=== PATIENT | male | born 1930 | race Caucasian/White ===

== ENCOUNTER 2018-08-09 03:59 | Emergency (ER) | payer MEDICARE, OTHER ==
[~2018-08-09] VITALS: Ht 165.1 cm; Wt 76.0 kg
[~2018-08-09 03:59] MED LIST: ASPI-1265 PO; ATOR40TA PO; D-3; DONE5TAB3 PO; HYT1T PO; MELA3TAB11 PO; NIAC500T81 PO
[2018-08-09 05:05] LABS: BASOPHILS % (AUTO) 0.4 % (0-1); EOSINOPHILS # (AUTO) 0.1 X10'3 (0-0.9); EOSINOPHILS % (AUTO) 0.9 % (0-6); HEMATOCRIT 38.6 % (42.0-52.0); HEMOGLOBIN 12.9 g/dl (14.0-17.9); LYMPHOCYTES # (AUTO) 1.6 X10'3 (1.1-4.8); LYMPHOCYTES % (AUTO) 16.9 % (21-51); MEAN CORPUSCULAR HEMOGLOBIN 31.6 PG (27.0-31.0); MEAN CORPUSCULAR HGB CONC 33.5 g/dL (33.0-36.5); MEAN CORPUSCULAR VOLUME 94.4 FL (78-98); MEAN PLATELET VOLUME 9.3 FL (7.4-10.4); MONOCYTES # (AUTO) 1.6 X10'3 (0-0.9); MONOCYTES % (AUTO) 17.2 % (2-12); NEUTROPHILS # (AUTO) 6.1 X10'3 (1.8-7.7); NEUTROPHILS % (AUTO) 64.6 % (42-75); PLATELET COUNT 176 X10'3 (140-440); RED BLOOD COUNT 4.09 X10'6 (4.70-6.10); RED CELL DISTRIBUTION WIDTH 13.2 % (11.5-14.5); WHITE BLOOD COUNT 9.4 X10'3 (4.5-11.0)
[2018-08-09 05:06] LABS: MAGNESIUM 1.8 MG/DL (1.5-2.4); PHOSPHORUS 3.2 MG/DL (2.3-4.5)
[2018-08-09 05:33] LABS: ALANINE AMINOTRANSFERASE 16 U/L (12-78); ALBUMIN 3.2 G/DL (3.4-5.0); ALBUMIN/GLOBULIN RATIO 0.9 (1.1-1.5); ALKALINE PHOSPHATASE 82 IU/L (46-116); ANION GAP 10 (8-16); ASPARTATE AMINO TRANSFERASE 23 U/L (10-37); BILIRUBIN,TOTAL 0.9 MG/DL (0.1-1.0); BLOOD UREA NITROGEN 20 MG/DL (7-18); BUN/CREATININE RATIO 14.2 (5.4-32.0); CALCIUM 8.9 MG/DL (8.5-10.1); CHLORIDE 103 MMOL/L (99-107); CREATININE 1.41 MG/DL (0.60-1.10); GLUCOSE 107 MG/DL (70-104); SODIUM 137 MMOL/L (135-145); TOTAL CARBON DIOXIDE 24.1 MMOL/L (24-32); TOTAL PROTEIN 6.8 G/DL (6.4-8.2); eGFR 48 ML/MIN
--- NOTE | 2018-08-09 05:53 | NUR ---
GOT PT OUT OF WET CLOTHES AND PROVIDED HIM WITH BEDSIDE URINAL FOR URINE SAMPLE. WILL RE-DRESS PATIENT WHEN FINISHED.
--- NOTE | 2018-08-09 06:35 | NUR ---
patient on bed asleep,family at bedside.
[2018-08-09 07:13] LABS: CLARITY,URINE CLOUDY (Clear); COLOR,URINE YELLOW (Yellow); GLUCOSE, URINE NEGATIVE (Neg); KETONES,URINE NEGATIVE (Neg); LEUKOCYTE ESTERASE ,URINE MODERATE (Neg); NITRITES, URINE POSITIVE (Neg); OCCULT BLOOD,URINE MODERATE (Neg); PROTEIN,URINE TRACE mg/dl (Neg)
[2018-08-09 07:14] LABS: UA COLLECTION TYPE STRAIGHT CATH
[2018-08-09 07:18] LABS: WBC,URINE TNTC /HPF (0-4)
[2018-08-09 07:19] LABS: BACTERIA,URINE 4+ /HPF (Neg); MUCUS STRANDS NONE SEEN /LPF (Neg); SQUAMOUS EPITHELIAL CELL,UR NONE SEEN /LPF (FEW); WBC CLUMPS,URINE MANY /HPF (NEGATIVE)
[2018-08-09] MEDS ORDERED: CefTRIAXone/D5W-Rocephin 1gm 50 ML IV ONE (07:25)
--- NOTE | 2018-08-09 07:26 | NUR ---
dr. michele at bedside.
[2018-08-09] MEDS ORDERED: CEPH500C5 PO (07:27)
[2018-08-09 08:24] VITALS: BP 158/65
== END 2018-08-09 08:25 | disposition home or self-care (01) ==
LOC: ER 04:00
DX: N39.0 Urinary tract infection, site not specified (principal); F03.90 Unspecified dementia, unspecified severity, without behavioral disturbance, psychotic disturbance, mood disturbance, and anxiety; I25.10 Atherosclerotic heart disease of native coronary artery without angina pectoris; I25.2 Old myocardial infarction; Z95.1 Presence of aortocoronary bypass graft; Z98.890 Other specified postprocedural states; Z88.0 Allergy status to penicillin; Z88.5 Allergy status to narcotic agent; Z79.82 Long term (current) use of aspirin; Z79.899 Other long term (current) drug therapy; W06.XXXA Fall from bed, initial encounter; Y93.89 Activity, other specified; Y92.89 Other specified places as the place of occurrence of the external cause; Y99.8 Other external cause status
CPT/HCPCS: 36415; 70450; 71045; 80053; 81001; 82140; 83735; 84100; 85025; 87077; 87088; 87186; 96365; 99284; J0696; P9612

== ENCOUNTER 2019-02-06 12:53 | Emergency (ER) | payer MEDICARE ==
[~2019-02-06] VITALS: Ht 172.7 cm; Wt 83.0 kg
[2019-02-06 13:51] LABS: BASOPHILS % (AUTO) 0.3 % (0-1); EOSINOPHILS # (AUTO) 0.2 X10'3 (0-0.9); EOSINOPHILS % (AUTO) 1.6 % (0-6); HEMATOCRIT 46.3 % (42.0-52.0); HEMOGLOBIN 15.6 g/dl (14.0-17.9); LYMPHOCYTES # (AUTO) 1.4 X10'3 (1.1-4.8); LYMPHOCYTES % (AUTO) 12.3 % (21-51); MEAN CORPUSCULAR HEMOGLOBIN 31.7 PG (27.0-31.0); MEAN CORPUSCULAR HGB CONC 33.7 g/dL (33.0-36.5); MEAN CORPUSCULAR VOLUME 93.9 FL (78-98); MEAN PLATELET VOLUME 9.2 FL (7.4-10.4); MONOCYTES # (AUTO) 1.5 X10'3 (0-0.9); MONOCYTES % (AUTO) 13.6 % (2-12); NEUTROPHILS % (AUTO) 72.2 % (42-75); PLATELET COUNT 207 X10'3 (140-440); RED BLOOD COUNT 4.93 X10'6 (4.70-6.10); RED CELL DISTRIBUTION WIDTH 13.7 % (11.5-14.5)
[2019-02-06 13:55] LABS: ALANINE AMINOTRANSFERASE 28 U/L (12-78); ALBUMIN 3.7 G/DL (3.4-5.0); ALKALINE PHOSPHATASE 83 IU/L (46-116); ANION GAP 6 (8-16); ASPARTATE AMINO TRANSFERASE 28 U/L (10-37); BLOOD UREA NITROGEN 17 MG/DL (7-18); CHLORIDE 102 MMOL/L (99-107); GLUCOSE 106 MG/DL (70-104); POTASSIUM 4.3 MMOL/L (3.5-5.1); SODIUM 137 MMOL/L (135-145); TOTAL CARBON DIOXIDE 28.8 MMOL/L (24-32); TOTAL PROTEIN 7.5 G/DL (6.4-8.2); eGFR 38 ML/MIN
[2019-02-06 15:15] LABS: CLARITY,URINE SLIGHTLY CLOUDY (Clear); COLOR,URINE YELLOW (Yellow); GLUCOSE, URINE NEGATIVE (Neg); KETONES,URINE NEGATIVE (Neg); LEUKOCYTE ESTERASE ,URINE NEGATIVE (Neg); NITRITES, URINE NEGATIVE (Neg); OCCULT BLOOD,URINE MODERATE (Neg); PROTEIN,URINE NEGATIVE (Neg); UROBILINOGEN,URINE 0.2 E.U/dL (0.2-1.0)
[2019-02-06 15:17] LABS: UA COLLECTION TYPE CLN CATCH MIDSTREAM
[2019-02-06 15:20] LABS: BACTERIA,URINE 1+ /HPF (Neg); HYALINE CASTS 0-3 /LPF (NEGATIVE); MUCUS STRANDS FEW /LPF (Neg); RBC,URINE 0-2 /HPF (0-2); SQUAMOUS EPITHELIAL CELL,UR FEW /LPF (FEW); WBC,URINE 0-4 /HPF (0-4)
[2019-02-06 15:59] VITALS: BP 135/80
== END 2019-02-06 16:03 | disposition home or self-care (01) ==
LOC: ER 12:53
DX: B34.9 Viral infection, unspecified (principal); I25.10 Atherosclerotic heart disease of native coronary artery without angina pectoris; I25.2 Old myocardial infarction; Z95.1 Presence of aortocoronary bypass graft; Z98.890 Other specified postprocedural states; Z88.0 Allergy status to penicillin; Z88.5 Allergy status to narcotic agent; Z79.82 Long term (current) use of aspirin; Z79.899 Other long term (current) drug therapy
CPT/HCPCS: 36415; 71045; 80053; 81001; 84484; 85025; 87502; 87503; 93005; 99284

== ENCOUNTER 2019-08-07 15:03 | Inpatient (IN) | payer MEDICARE ==
[~2019-08-07] VITALS: Ht 170.2 cm; Wt 79.7 kg
[2019-08-07 15:50] LABS: BASOPHILS # (AUTO) 0.1 X10'3 (0-0.2); BASOPHILS % (AUTO) 0.7 % (0-1); EOSINOPHILS # (AUTO) 0.2 X10'3 (0-0.9); EOSINOPHILS % (AUTO) 1.9 % (0-6); HEMATOCRIT 44.9 % (42.0-52.0); HEMOGLOBIN 14.9 g/dl (14.0-17.9); LYMPHOCYTES % (AUTO) 23.8 % (21-51); MEAN CORPUSCULAR HEMOGLOBIN 31.4 PG (27.0-31.0); MEAN CORPUSCULAR HGB CONC 33.1 g/dL (33.0-36.5); MEAN PLATELET VOLUME 9.1 FL (7.4-10.4); MONOCYTES # (AUTO) 0.8 X10'3 (0-0.9); MONOCYTES % (AUTO) 9.5 % (2-12); NEUTROPHILS # (AUTO) 5.5 X10'3 (1.8-7.7); NEUTROPHILS % (AUTO) 64.1 % (42-75); PLATELET COUNT 222 X10'3 (140-440); RED BLOOD COUNT 4.73 X10'6 (4.70-6.10); RED CELL DISTRIBUTION WIDTH 13.8 % (11.5-14.5); WHITE BLOOD COUNT 8.5 X10'3 (4.5-11.0)
[2019-08-07 16:04] LABS: PARTIAL THROMBOPLASTIN TIME 26 SECONDS (22-32)
[2019-08-07 16:05] LABS: ALANINE AMINOTRANSFERASE 33 U/L (12-78); ALBUMIN 3.7 G/DL (3.4-5.0); ALBUMIN/GLOBULIN RATIO 1.1 (1.1-1.5); ALKALINE PHOSPHATASE 61 IU/L (46-116); ANION GAP 8 (8-16); ASPARTATE AMINO TRANSFERASE 33 U/L (10-37); BILIRUBIN,TOTAL 0.5 MG/DL (0.1-1.0); BLOOD UREA NITROGEN 14 MG/DL (7-18); BUN/CREATININE RATIO 7.8 (5.4-32.0); CALCIUM 9.1 MG/DL (8.5-10.1); CHLORIDE 106 MMOL/L (99-107); CREATININE 1.79 MG/DL (0.60-1.10); GLUCOSE 103 MG/DL (70-104); SODIUM 141 MMOL/L (135-145); TOTAL CARBON DIOXIDE 27.4 MMOL/L (24-32); eGFR 36 ML/MIN
[2019-08-07 16:16] LABS: CLARITY,URINE SLIGHTLY CLOUDY (Clear); GLUCOSE, URINE NEGATIVE (Neg); KETONES,URINE TRACE mg/dl (Neg); LEUKOCYTE ESTERASE ,URINE NEGATIVE (Neg); NITRITES, URINE NEGATIVE (Neg); OCCULT BLOOD,URINE LARGE (Neg); PROTEIN,URINE 30 mg/dl (Neg)
[2019-08-07] MEDS ORDERED: acetaminophen 325mg tablet PO PRN (16:30)
[2019-08-07] MEDS ORDERED: ondansetron/PF 4mg/2ml inj IV PRN (16:30)
[2019-08-07] MEDS ORDERED: mag hydrox/Alum hydrox/simeth 30ml oral suspension PO PRN (16:30)
[2019-08-07] MEDS ORDERED: magnesium hydroxide 30ml (MOM) UD suspension PO PRN (16:30)
[2019-08-07 16:31] LABS: UA COLLECTION TYPE FOLEY CATH
[2019-08-07 16:32] LABS: COLOR,URINE DARK YELLOW (Yellow)
[2019-08-07 16:33] LABS: BACTERIA,URINE FEW /HPF (Neg)
[2019-08-07 16:34] LABS: HYALINE CASTS >30 /LPF (NEGATIVE); MUCUS STRANDS MANY /LPF (Neg); SQUAMOUS EPITHELIAL CELL,UR NONE SEEN /LPF (FEW); TRANSITIONAL EPI CELLS,URINE MANY /HPF; WBC CLUMPS,URINE MANY /HPF (NEGATIVE)
[2019-08-07] MEDS: normal saline 1000ml 1,000 ML IV SCH (16:53)
--- NOTE | 2019-08-07 17:16 | NUR ---
IN TO SEE PT AND FOUND HIM PULLING AT F/C AND PT HAD TAKEN STAT LOC OFF OF LEG. REPLACED STAT LOC. INSTRUCTED TO NOT TO PULL ON CATH PT STATES UNDERSTANDING
--- NOTE | 2019-08-07 17:35 | NUR ---
IN TO CHECK ON PT. PT HAS PULLED OUT RIGHT FA IV CATH INTACT. PT BROKE HARD PLASTIC CONECTTION TO F/C HAD PULLED CATH OUT OF STAT LOC. F/C REMOVED. WILL LEAVE IV, F/C, AND VS MONITOR OFF UNTIL PT GOES UP TO FLOOR. PER NSG SUP PT WILL GET A BED WITH A SITTER AT CHANGE OF SHIFT.
--- NOTE | 2019-08-07 18:44 | NUR ---
per Dr. Alvarez ok to leave f/c out until pt is admitted and brought to floor.
[2019-08-07 19:00] VITALS: BP 184/86
[2019-08-07] MEDS: Terazosin 1mg capsule PO SCH (21:00)
[2019-08-07] MEDS: atorvastatin 20mg tablet PO SCH (21:00)
[2019-08-07] MEDS: heparin, porcine 5000 units/ml vial SQ SCH (21:01)
[2019-08-07] MEDS ORDERED: HYDROmorphone inj. 0.5 MG/0.5 ML DISP.SYRIN IV PRN (21:25)
[2019-08-07] MEDS: HYDROmorphone 1 mg/ml syringe IV PRN (21:46)
[2019-08-07 22:00] VITALS: BP 184/86
--- NOTE | 2019-08-07 22:00 | NUR ---
Placed FC without difficulty. Dilaudid given prior. Patient tolerated well
[2019-08-08] VITALS (19 sets, daily range): BP systolic 108–159; BP diastolic 39–106
[2019-08-08] MEDS: normal saline 1000ml 1,000 ML IV SCH ×3 (02:27→17:12)
[2019-08-08] MEDS: HYDROmorphone 1 mg/ml syringe IV PRN ×2 (03:58→20:15)
--- NOTE | 2019-08-08 06:11 | NUR ---
Problems reprioritized. Patient report given, questions answered & plan of care reviewed with KELI Valverde.
[2019-08-08 06:13] LABS: BASOPHILS % (AUTO) 0.4 % (0-1); EOSINOPHILS # (AUTO) 0.3 X10'3 (0-0.9); EOSINOPHILS % (AUTO) 2.8 % (0-6); HEMATOCRIT 40.6 % (42.0-52.0); HEMOGLOBIN 13.6 g/dl (14.0-17.9); LYMPHOCYTES # (AUTO) 1.8 X10'3 (1.1-4.8); LYMPHOCYTES % (AUTO) 19.7 % (21-51); MEAN CORPUSCULAR HGB CONC 33.5 g/dL (33.0-36.5); MEAN CORPUSCULAR VOLUME 95.6 FL (78-98); MONOCYTES # (AUTO) 1.1 X10'3 (0-0.9); MONOCYTES % (AUTO) 12.3 % (2-12); NEUTROPHILS % (AUTO) 64.8 % (42-75); PLATELET COUNT 171 X10'3 (140-440); RED BLOOD COUNT 4.25 X10'6 (4.70-6.10); RED CELL DISTRIBUTION WIDTH 14.1 % (11.5-14.5); WHITE BLOOD COUNT 9.2 X10'3 (4.5-11.0)
[2019-08-08 06:26] LABS: ANION GAP 9 (8-16); BLOOD UREA NITROGEN 16 MG/DL (7-18); BUN/CREATININE RATIO 9.9 (5.4-32.0); CHLORIDE 108 MMOL/L (99-107); CREATININE 1.62 MG/DL (0.60-1.10); GLUCOSE 100 MG/DL (70-104); POTASSIUM 4.1 MMOL/L (3.5-5.1); SODIUM 142 MMOL/L (135-145); TOTAL CARBON DIOXIDE 25.2 MMOL/L (24-32); eGFR 41 ML/MIN
--- NOTE | 2019-08-08 06:31 | NUR ---
Patient in room [facility]TH[facility] 4021. I have received report from Eulalia White RN and had the opportunity to ask questions and assume patient care.
[2019-08-08] MEDS: heparin, porcine 5000 units/ml vial SQ SCH ×2 (06:49→20:05)
[2019-08-08] MEDS: donepezil 5mg tablet PO SCH (08:00)
[2019-08-08] MEDS ORDERED: fentaNYL/PF 50MCG/1 ML 2ML syringe ONE (13:29)
[2019-08-08] MEDS ORDERED: propofol inj 20 ML IV ONE (15:01)
[2019-08-08] MEDS ORDERED: ePHEDrine 50MG/ML INJ. ONE (15:02)
--- NOTE | 2019-08-08 15:42 | NUR ---
Received from OR via BED, accompanied by Anesthesiologist DR BARDALES and report given by Anesthesiologist. PT DROWSY, OPENS EYES TO NAME, DENIES PAIN, RIGHT HIP W/SMALL ISLAND DRSG W/SMALL DIME SIZED S/S DRAINAGE, REZA DRAIN W/GREEN LIGHT ILLUMINATION, ADDUCTOR WEDGE IN PLACE, POWDER PACK APPLIED TO RIGHT HIP. CLIFTON CATHETER TO GRAVITY DRAINAGE W/[place] URINE IN DRAINAGE BAG. Addendum: 08/08/19 at 1628 by Sindi Witt RN Amended: Links added.
[2019-08-08] MEDS ORDERED: ondansetron/PF 4mg/2ml inj IV PRN (15:45)
[2019-08-08] MEDS ORDERED: diphenhydrAMINE 25mg capsule PO PRN ×2 (15:45)
[2019-08-08] MEDS ORDERED: magnesium hydroxide 30ml (MOM) UD suspension PO PRN (15:45)
[2019-08-08] MEDS ORDERED: bisacodyl 10mg suppository rectal RC PRN (15:45)
--- NOTE | 2019-08-08 16:42 | NUR ---
Report called to receiving nurse. Transferred via BED ON TELE #6 BY ERASMO GABRIEL. Special Issues communicated to receiving nurse. YES. Addendum: 08/08/19 at 1658 by Sindi Witt RN Amended: Links added.
--- NOTE | 2019-08-08 18:32 | NUR ---
Problems reprioritized. Patient report given, questions answered & plan of care reviewed with Eulalia White RN.
[2019-08-08] MEDS: HYDROcodone/acetaminophen 10/325mg tab PO PRN (20:04)
[2019-08-08] MEDS: Terazosin 1mg capsule PO SCH (20:04)
[2019-08-08] MEDS: sennosides 8.6mg tablet PO SCH (20:05)
[2019-08-08] MEDS: atorvastatin 20mg tablet PO SCH (20:05)
--- NOTE | 2019-08-08 22:00 | NUR ---
after medicating patient, tried to have him dangle feet. He fought against staff and screamed out. Verbalized that he was ready, but even moving his L leg he resisted and tried to push himself back into the bed. Removed excess bedding underneath patient by rolling him from side to side. He resisted and fought against this as well. Placed ice packs and tried to reposition for comfort. Asked patient at this time if he was in pain, he stated "no".
[2019-08-09] MEDS: cefazolin/dext.iso 2gm/50ml 50 ML IV SCH ×2 (00:06→08:01)
[2019-08-09] MEDS: HYDROcodone/acetaminophen 10/325mg tab PO PRN ×3 (01:58→20:44)
[2019-08-09 02:00] VITALS: BP 136/65
[2019-08-09] MEDS: normal saline 1000ml 1,000 ML IV SCH ×2 (03:18→14:52)
--- NOTE | 2019-08-09 04:00 | NUR ---
patient felt hot. temp was 102. - placed cool washcloth on head and administered Tylenol.
[2019-08-09] MEDS: acetaminophen 325mg tablet PO PRN ×2 (04:42→17:56)
--- NOTE | 2019-08-09 05:30 | NUR ---
temp down from 102 to 100 after Tylenol
[2019-08-09 06:00] VITALS: BP 113/50
[2019-08-09 06:06] LABS: BASOPHILS % (AUTO) 0.2 % (0-1); EOSINOPHILS # (AUTO) 0.1 X10'3 (0-0.9); EOSINOPHILS % (AUTO) 1.4 % (0-6); HEMATOCRIT 37.1 % (42.0-52.0); HEMOGLOBIN 12.5 g/dl (14.0-17.9); LYMPHOCYTES % (AUTO) 10.6 % (21-51); MEAN CORPUSCULAR HEMOGLOBIN 32.1 PG (27.0-31.0); MEAN CORPUSCULAR HGB CONC 33.7 g/dL (33.0-36.5); MEAN CORPUSCULAR VOLUME 95.3 FL (78-98); MEAN PLATELET VOLUME 9.2 FL (7.4-10.4); MONOCYTES # (AUTO) 1.3 X10'3 (0-0.9); MONOCYTES % (AUTO) 14.3 % (2-12); NEUTROPHILS # (AUTO) 6.9 X10'3 (1.8-7.7); NEUTROPHILS % (AUTO) 73.5 % (42-75); PLATELET COUNT 162 X10'3 (140-440); RED CELL DISTRIBUTION WIDTH 13.7 % (11.5-14.5); WHITE BLOOD COUNT 9.4 X10'3 (4.5-11.0)
[2019-08-09 06:12] LABS: ALBUMIN 2.8 G/DL (3.4-5.0); ANION GAP 10 (8-16); BLOOD UREA NITROGEN 19 MG/DL (7-18); BUN/CREATININE RATIO 11.5 (5.4-32.0); CALCIUM 8.2 MG/DL (8.5-10.1); CHLORIDE 108 MMOL/L (99-107); CREATININE 1.65 MG/DL (0.60-1.10); GLUCOSE 127 MG/DL (70-104); POTASSIUM 4.5 MMOL/L (3.5-5.1); SODIUM 139 MMOL/L (135-145); TOTAL CARBON DIOXIDE 21.2 MMOL/L (24-32); eGFR 40 ML/MIN
--- NOTE | 2019-08-09 06:13 | NUR ---
Problems reprioritized. Patient report given, questions answered & plan of care reviewed with KELI Valverde.
[2019-08-09] MEDS: heparin, porcine 5000 units/ml vial SQ SCH ×2 (07:59→20:44)
[2019-08-09] MEDS ORDERED: enoxaparin 40mg/0.4ml syringe SQ SCH (08:00)
[2019-08-09] MEDS: donepezil 5mg tablet PO SCH (08:00)
[2019-08-09 10:00] VITALS: BP 121/52
[2019-08-09] MEDS: HYDROmorphone 1 mg/ml syringe IV PRN (13:27)
[2019-08-09 14:00] VITALS: BP 104/56
[2019-08-09 18:00] VITALS: BP 155/67
--- NOTE | 2019-08-09 18:25 | NUR ---
Problems reprioritized. Patient report given, questions answered & plan of care reviewed with Eulalia White RN.
[2019-08-09] MEDS: Terazosin 1mg capsule PO SCH (20:43)
[2019-08-09] MEDS: atorvastatin 20mg tablet PO SCH (20:44)
[2019-08-09] MEDS: sennosides 8.6mg tablet PO SCH (20:44)
[2019-08-09 22:00] VITALS: BP 123/47
[2019-08-10] MEDS: normal saline 1000ml 1,000 ML IV SCH ×2 (00:39→11:00)
[2019-08-10] MEDS: HYDROcodone/acetaminophen 10/325mg tab PO PRN ×3 (05:29→20:02)
[2019-08-10 05:54] LABS: BASOPHILS % (AUTO) 0.4 % (0-1); EOSINOPHILS # (AUTO) 0.4 X10'3 (0-0.9); HEMATOCRIT 36.5 % (42.0-52.0); LYMPHOCYTES # (AUTO) 1.4 X10'3 (1.1-4.8); LYMPHOCYTES % (AUTO) 15.3 % (21-51); MEAN CORPUSCULAR HEMOGLOBIN 31.6 PG (27.0-31.0); MEAN CORPUSCULAR HGB CONC 32.9 g/dL (33.0-36.5); MEAN PLATELET VOLUME 9.3 FL (7.4-10.4); MONOCYTES # (AUTO) 1.3 X10'3 (0-0.9); NEUTROPHILS # (AUTO) 6.1 X10'3 (1.8-7.7); NEUTROPHILS % (AUTO) 66.3 % (42-75); PLATELET COUNT 131 X10'3 (140-440); RED CELL DISTRIBUTION WIDTH 13.9 % (11.5-14.5); WHITE BLOOD COUNT 9.2 X10'3 (4.5-11.0)
[2019-08-10 06:00] VITALS: BP 149/61
[2019-08-10 06:05] LABS: ALBUMIN 2.4 G/DL (3.4-5.0); ANION GAP 9 (8-16); BLOOD UREA NITROGEN 18 MG/DL (7-18); CALCIUM 8.3 MG/DL (8.5-10.1); CHLORIDE 108 MMOL/L (99-107); CREATININE 1.38 MG/DL (0.60-1.10); GLUCOSE 100 MG/DL (70-104); POTASSIUM 4.1 MMOL/L (3.5-5.1); SODIUM 140 MMOL/L (135-145); TOTAL CARBON DIOXIDE 23.5 MMOL/L (24-32); eGFR 49 ML/MIN
--- NOTE | 2019-08-10 06:30 | NUR ---
Patient in room [facility]TH[facility] 4021. I have received report from Eulalia DICKEY and had the opportunity to ask questions and assume patient care.
--- NOTE | 2019-08-10 06:32 | NUR ---
Problems reprioritized. Patient report given, questions answered & plan of care reviewed with KELI Balderrama.
[2019-08-10] MEDS: donepezil 5mg tablet PO SCH (09:10)
[2019-08-10] MEDS: heparin, porcine 5000 units/ml vial SQ SCH ×2 (09:13→20:02)
[2019-08-10 10:00] VITALS: BP 123/50
[2019-08-10] MEDS: CefTRIAXone/D5W-Rocephin 1gm 50 ML IV SCH (14:09)
[2019-08-10] MEDS: albuterol 1.25 MG/3 ML (1/2 strength) nebule NEB SCH ×3 (15:00→23:09)
[2019-08-10 18:00] VITALS: BP 145/76
--- NOTE | 2019-08-10 18:29 | NUR ---
Problems reprioritized. Patient report given, questions answered & plan of care reviewed with Christiana DICKEY.
--- NOTE | 2019-08-10 18:49 | NUR ---
Patient in room [facility]TH[facility] 4021. I have received report from luis felipe Harris and had the opportunity to ask questions and assume patient care.
[2019-08-10] MEDS: atorvastatin 20mg tablet PO SCH (20:02)
[2019-08-10] MEDS: sennosides 8.6mg tablet PO SCH (20:02)
[2019-08-10] MEDS: Terazosin 1mg capsule PO SCH (20:02)
[2019-08-10] MEDS: acetaminophen 325mg tablet PO PRN (21:51)
[2019-08-10 22:00] VITALS: BP 177/95
[2019-08-10 23:52] VITALS: BP 129/56
--- NOTE | 2019-08-11 00:02 | NUR ---
CALLED TO CHECK ON PT. I MENTIONED ABOUT PT'S TEMP OF 102.4 WELL LETHARGY. ALSO PT HAD FEVER LAST NIGHT WELL. NO ORDER RECEIVED. WILL MONITOR.
[2019-08-11] MEDS: albuterol 1.25 MG/3 ML (1/2 strength) nebule NEB SCH ×6 (03:05→23:44)
[2019-08-11] MEDS: HYDROcodone/acetaminophen 10/325mg tab PO PRN ×2 (05:15→20:09)
[2019-08-11 06:00] VITALS: BP 129/58
--- NOTE | 2019-08-11 06:43 | NUR ---
Problems reprioritized. Patient report given, questions answered & plan of care reviewed with KELI PETERSEN.
[2019-08-11 07:21] LABS: BASOPHILS % (AUTO) 0.5 % (0-1); EOSINOPHILS # (AUTO) 0.3 X10'3 (0-0.9); EOSINOPHILS % (AUTO) 4.2 % (0-6); HEMATOCRIT 30.7 % (42.0-52.0); HEMOGLOBIN 10.3 g/dl (14.0-17.9); LYMPHOCYTES # (AUTO) 1.2 X10'3 (1.1-4.8); LYMPHOCYTES % (AUTO) 17.7 % (21-51); MEAN CORPUSCULAR HEMOGLOBIN 32.1 PG (27.0-31.0); MEAN CORPUSCULAR HGB CONC 33.5 g/dL (33.0-36.5); MEAN CORPUSCULAR VOLUME 95.8 FL (78-98); MEAN PLATELET VOLUME 9.7 FL (7.4-10.4); NEUTROPHILS # (AUTO) 4.3 X10'3 (1.8-7.7); NEUTROPHILS % (AUTO) 63.6 % (42-75); PLATELET COUNT 142 X10'3 (140-440); RED CELL DISTRIBUTION WIDTH 13.6 % (11.5-14.5); WHITE BLOOD COUNT 6.8 X10'3 (4.5-11.0)
[2019-08-11 07:27] LABS: ALBUMIN 2.2 G/DL (3.4-5.0); ANION GAP 8 (8-16); BLOOD UREA NITROGEN 18 MG/DL (7-18); BUN/CREATININE RATIO 12.9 (5.4-32.0); CALCIUM 8.2 MG/DL (8.5-10.1); CHLORIDE 108 MMOL/L (99-107); CREATININE 1.39 MG/DL (0.60-1.10); GLUCOSE 99 MG/DL (70-104); SODIUM 141 MMOL/L (135-145); TOTAL CARBON DIOXIDE 24.8 MMOL/L (24-32); eGFR 48 ML/MIN
[2019-08-11] MEDS: CefTRIAXone/D5W-Rocephin 1gm 50 ML IV SCH (09:35)
[2019-08-11] MEDS: donepezil 5mg tablet PO SCH (09:36)
[2019-08-11] MEDS: heparin, porcine 5000 units/ml vial SQ SCH ×2 (09:37→20:20)
[2019-08-11 10:00] VITALS: BP 142/86
[2019-08-11 14:00] VITALS: BP 152/89
[2019-08-11] MEDS: acetaminophen 325mg tablet PO PRN (17:05)
[2019-08-11 18:00] VITALS: BP 174/68
[2019-08-11] MEDS: atorvastatin 20mg tablet PO SCH (20:09)
[2019-08-11] MEDS: sennosides 8.6mg tablet PO SCH (20:09)
[2019-08-11] MEDS: Terazosin 1mg capsule PO SCH (20:09)
[2019-08-11 22:00] VITALS: BP 127/64
[2019-08-12] MEDS: albuterol 1.25 MG/3 ML (1/2 strength) nebule NEB SCH ×5 (03:24→19:44)
[2019-08-12 06:00] VITALS: BP 188/74
--- NOTE | 2019-08-12 06:21 | NUR ---
Problems reprioritized. Patient report given, questions answered & plan of care reviewed with KELI MANZANO.
--- NOTE | 2019-08-12 06:45 | NUR ---
Patient in room [facility]TH[facility] 4021B. I have received report from KELI KEENAN and had the opportunity to ask questions and assume patient care.
[2019-08-12 06:55] LABS: BASOPHILS % (AUTO) 0.4 % (0-1); EOSINOPHILS # (AUTO) 0.3 X10'3 (0-0.9); EOSINOPHILS % (AUTO) 4.6 % (0-6); HEMOGLOBIN 10.4 g/dl (14.0-17.9); LYMPHOCYTES % (AUTO) 15.7 % (21-51); MEAN CORPUSCULAR HEMOGLOBIN 31.8 PG (27.0-31.0); MEAN CORPUSCULAR HGB CONC 33.4 g/dL (33.0-36.5); MEAN CORPUSCULAR VOLUME 95.2 FL (78-98); MEAN PLATELET VOLUME 9.4 FL (7.4-10.4); MONOCYTES # (AUTO) 0.9 X10'3 (0-0.9); MONOCYTES % (AUTO) 14.2 % (2-12); NEUTROPHILS # (AUTO) 4.2 X10'3 (1.8-7.7); NEUTROPHILS % (AUTO) 65.1 % (42-75); PLATELET COUNT 163 X10'3 (140-440); RED BLOOD COUNT 3.26 X10'6 (4.70-6.10); RED CELL DISTRIBUTION WIDTH 13.7 % (11.5-14.5); WHITE BLOOD COUNT 6.5 X10'3 (4.5-11.0)
[2019-08-12 07:01] LABS: ALBUMIN 2.3 G/DL (3.4-5.0); ANION GAP 9 (8-16); BLOOD UREA NITROGEN 17 MG/DL (7-18); BUN/CREATININE RATIO 12.7 (5.4-32.0); CALCIUM 8.4 MG/DL (8.5-10.1); CHLORIDE 103 MMOL/L (99-107); CREATININE 1.34 MG/DL (0.60-1.10); GLUCOSE 96 MG/DL (70-104); POTASSIUM 3.6 MMOL/L (3.5-5.1); SODIUM 135 MMOL/L (135-145); TOTAL CARBON DIOXIDE 23.3 MMOL/L (24-32); eGFR 51 ML/MIN
[2019-08-12] MEDS: CefTRIAXone/D5W-Rocephin 1gm 50 ML IV SCH (07:19)
[2019-08-12] MEDS: donepezil 5mg tablet PO SCH (07:25)
[2019-08-12] MEDS: heparin, porcine 5000 units/ml vial SQ SCH ×2 (07:40→20:02)
[2019-08-12 10:00] VITALS: BP 110/57
--- NOTE | 2019-08-12 11:55 | NUR ---
Initial: Pt admit w/ R femur fx s/p repair. hx dementia pleasantly confused per EMR. PO increasing to 75-100% regular diet past 1.5 days up from initial partially meeting needs. Ensure high protein BIDLD recommended w/ meals for additional protein needs; notified. No BM yet post-op receiving routine senna. Not appropriate for protein ed given dementia hx. Micheal 13 w/ surgical site. Will continue to monitor for additional protein needs post-op. Rec: 1. continue regular diet 2. ensure high protein BIDLD 3. routine bowel care 4. weekly wts Addendum: 08/12/19 at [address] Amended: Links added.
[2019-08-12] MEDS: lactose-reduced food (Ensure High Protein) 237ml bottle PO SCH ×2 (12:30→17:52)
--- NOTE | 2019-08-12 12:53 | NUR ---
Student documentation: I have reviewed all interventions, assessments performed and documented by Tabitha Conley. Student Medication Administration: For this medication-pass time frame, all medication were reviewed, dispensed, administered and documented per hospital policy by Tabitha Conley.
[2019-08-12] MEDS: acetaminophen 325mg tablet PO PRN ×2 (17:41→23:33)
[2019-08-12 18:00] VITALS: BP 140/67
--- NOTE | 2019-08-12 18:42 | NUR ---
Problems reprioritized. Patient report given, questions answered & plan of care reviewed with KELI Villeda.
[2019-08-12] MEDS: lactobacillus rhamnosus 10,000 MMU CELLS/CAPSULE PO SCH (20:01)
[2019-08-12] MEDS: Terazosin 1mg capsule PO SCH (20:01)
[2019-08-12] MEDS: atorvastatin 20mg tablet PO SCH (20:01)
[2019-08-12] MEDS: sennosides 8.6mg tablet PO SCH (20:02)
[2019-08-12] MEDS: HYDROcodone/acetaminophen 10/325mg tab PO PRN (20:05)
[2019-08-12 22:00] VITALS: BP 110/85
[2019-08-13] MEDS: albuterol 1.25 MG/3 ML (1/2 strength) nebule NEB SCH ×5 (00:15→15:00)
[2019-08-13] MEDS: HYDROcodone/acetaminophen 10/325mg tab PO PRN ×3 (05:38→14:59)
[2019-08-13 06:00] VITALS: BP 133/79
--- NOTE | 2019-08-13 06:22 | NUR ---
Problems reprioritized. Patient report given, questions answered & plan of care reviewed with KELI CANTRELL.
--- NOTE | 2019-08-13 06:30 | NUR ---
received report from luis felipe lyons
[2019-08-13 06:59] LABS: BASOPHILS % (AUTO) 0.5 % (0-1); EOSINOPHILS # (AUTO) 0.3 X10'3 (0-0.9); EOSINOPHILS % (AUTO) 4.9 % (0-6); HEMOGLOBIN 10.4 g/dl (14.0-17.9); LYMPHOCYTES # (AUTO) 1.6 X10'3 (1.1-4.8); LYMPHOCYTES % (AUTO) 26.8 % (21-51); MEAN CORPUSCULAR HEMOGLOBIN 31.8 PG (27.0-31.0); MEAN CORPUSCULAR HGB CONC 33.6 g/dL (33.0-36.5); MEAN CORPUSCULAR VOLUME 94.7 FL (78-98); MEAN PLATELET VOLUME 8.9 FL (7.4-10.4); MONOCYTES # (AUTO) 0.9 X10'3 (0-0.9); MONOCYTES % (AUTO) 15.4 % (2-12); NEUTROPHILS % (AUTO) 52.4 % (42-75); PLATELET COUNT 190 X10'3 (140-440); RED BLOOD COUNT 3.27 X10'6 (4.70-6.10); RED CELL DISTRIBUTION WIDTH 13.6 % (11.5-14.5); WHITE BLOOD COUNT 5.8 X10'3 (4.5-11.0)
[2019-08-13 07:15] LABS: ALANINE AMINOTRANSFERASE 25 U/L (12-78); ALBUMIN 2.3 G/DL (3.4-5.0); ALBUMIN/GLOBULIN RATIO 0.7 (1.1-1.5); ALKALINE PHOSPHATASE 49 IU/L (46-116); ANION GAP 9 (8-16); ASPARTATE AMINO TRANSFERASE 59 U/L (10-37); BILIRUBIN,TOTAL 0.8 MG/DL (0.1-1.0); BLOOD UREA NITROGEN 20 MG/DL (7-18); BUN/CREATININE RATIO 15.6 (5.4-32.0); CALCIUM 8.6 MG/DL (8.5-10.1); CHLORIDE 105 MMOL/L (99-107); CREATININE 1.28 MG/DL (0.60-1.10); GLUCOSE 98 MG/DL (70-104); POTASSIUM 3.5 MMOL/L (3.5-5.1); SODIUM 139 MMOL/L (135-145); TOTAL CARBON DIOXIDE 25.3 MMOL/L (24-32); TOTAL PROTEIN 5.8 G/DL (6.4-8.2); eGFR 53 ML/MIN
[2019-08-13 07:40] LABS: PLATELET ESTIMATE NORMAL; TOTAL CELLS COUNTED 100
[2019-08-13] MEDS: donepezil 5mg tablet PO SCH (08:00)
[2019-08-13] MEDS: lactobacillus rhamnosus 10,000 MMU CELLS/CAPSULE PO SCH (08:00)
[2019-08-13] MEDS: heparin, porcine 5000 units/ml vial SQ SCH (08:02)
[2019-08-13] MEDS: CefTRIAXone/D5W-Rocephin 1gm 50 ML IV SCH (08:10)
[2019-08-13 10:00] VITALS: BP 139/68
[2019-08-13] MEDS: lactose-reduced food (Ensure High Protein) 237ml bottle PO SCH (12:49)
--- NOTE | 2019-08-13 14:44 | NUR ---
gave report to luis felipe jhonson at [facility]
--- NOTE | 2019-08-13 16:16 | NUR ---
pt d/c with powder packs, took bag of belongings home w/her, on gurney to go to [facility]
== END 2019-08-13 16:19 | disposition still patient (30) | DRG 470 ==
LOC: ER 15:03 → ED HOLD 16:27 → UNDOADMIN 16:27 → ED HOLD 16:30 → ORTHO 4S 19:00 → ED HOLD 19:00 → ORTHO 4S 08-08 15:41
PROVIDERS: ADMIT Orthopaedic Surgery; ATTEND Family Medicine
PROC: 0SRR0JZ Replacement of Right Hip Joint, Femoral Surface with Synthetic Substitute, Open Approach (ICD-10-PCS; principal; 2019-08-08 13:29)
DX: S72.001A Fracture of unspecified part of neck of right femur, initial encounter for closed fracture (principal); N39.0 Urinary tract infection, site not specified; J98.11 Atelectasis; F03.90 Unspecified dementia, unspecified severity, without behavioral disturbance, psychotic disturbance, mood disturbance, and anxiety; I25.10 Atherosclerotic heart disease of native coronary artery without angina pectoris; R50.9 Fever, unspecified
CPT/HCPCS: 36415; 71045; 73501; 73502; 80048; 80053; 81001; 85025; 85610; 85730; 86885; 86900; 86901; 87081; 87088; 93005; 94640; 94760; 97110; 97162; 97530; 97535; 99285; A4618; A6446; A6454; A7000; A9272; C1776; G0378; J0696; J1170; J1644; J2704; J3010; J7030; J7120

== ENCOUNTER 2019-10-07 14:37 | Emergency (ER) | payer MEDICARE ==
[~2019-10-07] VITALS: Ht 167.6 cm; Wt 77.7 kg
[~2019-10-07 14:37] MED LIST changes: -ASPI-1265 PO; -D-3; -NIAC500T81 PO
[2019-10-07] MEDS ORDERED: LORazepam 2 mg/ml vial IV ONE (15:10)
[2019-10-07 15:12] LABS: BASOPHILS % (AUTO) 0.5 % (0-1); EOSINOPHILS # (AUTO) 0.2 X10'3 (0-0.9); EOSINOPHILS % (AUTO) 2.6 % (0-6); HEMATOCRIT 42.3 % (42.0-52.0); HEMOGLOBIN 13.9 g/dl (14.0-17.9); LYMPHOCYTES % (AUTO) 22.6 % (21-51); MEAN CORPUSCULAR HEMOGLOBIN 30.9 PG (27.0-31.0); MEAN CORPUSCULAR HGB CONC 32.8 g/dL (33.0-36.5); MEAN CORPUSCULAR VOLUME 94.2 FL (78-98); MEAN PLATELET VOLUME 8.7 FL (7.4-10.4); NEUTROPHILS # (AUTO) 5.7 X10'3 (1.8-7.7); NEUTROPHILS % (AUTO) 63.3 % (42-75); PLATELET COUNT 228 X10'3 (140-440); RED BLOOD COUNT 4.49 X10'6 (4.70-6.10); RED CELL DISTRIBUTION WIDTH 14.3 % (11.5-14.5)
[2019-10-07 15:23] LABS: ALANINE AMINOTRANSFERASE 25 U/L (12-78); ALBUMIN 1.8 G/DL (3.4-5.0); ALBUMIN/GLOBULIN RATIO 0.3 (1.1-1.5); ALKALINE PHOSPHATASE 63 IU/L (46-116); ANION GAP 8 (8-16); ASPARTATE AMINO TRANSFERASE 57 U/L (10-37); BILIRUBIN,TOTAL 0.7 MG/DL (0.1-1.0); BLOOD UREA NITROGEN 33 MG/DL (7-18); CALCIUM 9.8 MG/DL (8.5-10.1); CHLORIDE 105 MMOL/L (99-107); CREATININE 1.32 MG/DL (0.60-1.10); GLUCOSE 94 MG/DL (70-104); POTASSIUM 4.6 MMOL/L (3.5-5.1); SODIUM 139 MMOL/L (135-145); TOTAL CARBON DIOXIDE 26.4 MMOL/L (24-32); TOTAL PROTEIN 7.6 G/DL (6.4-8.2); eGFR 51 ML/MIN
[2019-10-07 15:27] LABS: ETHANOL < 0.010 GM/DL (0.0-0.010); TROPONIN I < 0.04 NG/ML (0.0-0.05)
[2019-10-07 15:28] LABS: CLARITY,URINE CLEAR (Clear); COLOR,URINE YELLOW (Yellow); GLUCOSE, URINE NEGATIVE (Neg); KETONES,URINE TRACE mg/dl (Neg); LEUKOCYTE ESTERASE ,URINE NEGATIVE (Neg); NITRITES, URINE NEGATIVE (Neg); OCCULT BLOOD,URINE NEGATIVE (Neg); PROTEIN,URINE NEGATIVE (Neg); UA COLLECTION TYPE CLN CATCH MIDSTREAM
[2019-10-07 15:42] LABS: URINE AMPHETAMINE SCREEN NEGATIVE (Neg); URINE BARBITUATE SCREEN NEGATIVE (Neg); URINE BENZODIAZEPINES SCREEN NEGATIVE (Neg); URINE CANNABINOID SCREEN NEGATIVE (Neg); URINE COCAINE SCREEN NEGATIVE (Neg); URINE METHADONE SCREEN NEGATIVE (Neg); URINE OPIATE SCREEN POSITIVE (Neg); URINE PHENCYCLIDINE SCREEN NEGATIVE (Neg)
--- NOTE | 2019-10-07 15:46 | NUR ---
back from CT, cooperative during scan
[2019-10-07 16:18] VITALS: BP 131/66
--- NOTE | 2019-10-07 17:13 | NUR ---
transport won't arrive till 1800
--- NOTE | 2019-10-07 17:32 | NUR ---
called and spoke to daughter Aminata, gave status and she will call facilty and have them push water
== END 2019-10-07 17:33 | disposition home or self-care (01) ==
LOC: ER 14:37
DX: R41.82 Altered mental status, unspecified (principal); I25.10 Atherosclerotic heart disease of native coronary artery without angina pectoris; I25.2 Old myocardial infarction; Z87.440 Personal history of urinary (tract) infections; Z85.9 Personal history of malignant neoplasm, unspecified; Z98.890 Other specified postprocedural states; Z88.0 Allergy status to penicillin; Z88.5 Allergy status to narcotic agent; Z79.899 Other long term (current) drug therapy
CPT/HCPCS: 36415; 70450; 71045; 80053; 80305; 80320; 81003; 84484; 85025; 93005; 99285